=== PATIENT | female | born 1955 | race Caucasian/White ===

== ENCOUNTER 2018-04-11 06:19 | Emergency (ER) | payer BC ==
[~2018-04-11] VITALS: Ht 162.6 cm; Wt 56.7 kg
[2018-04-11] MEDS ORDERED: LANTUS SUBCUT (06:36)
[2018-04-11] MEDS ORDERED: LEVO100T78 PO (06:36)
--- NOTE | 2018-04-11 06:40 | NUR ---
admitted to [facility] via wheelchair from home c/o pain of left ankle. bp 123/89, o2 sat on rm air-99%. dr mason will see & evaluate pt.
--- NOTE | 2018-04-11 07:05 | NUR ---
report given to molly sanchez.
[2018-04-11 07:41] VITALS: BP 111/81
--- NOTE | 2018-04-11 07:41 | NUR ---
Patient discharged to home in stable conditon. Written and verbal after care instructions given. Patient verbalizes understanding of instructions.pt with so
== END 2018-04-11 07:42 | disposition home or self-care (01) ==
LOC: ER 06:24
DX: S92.335A Nondisplaced fracture of third metatarsal bone, left foot, initial encounter for closed fracture (principal); E10.9 Type 1 diabetes mellitus without complications; Z88.5 Allergy status to narcotic agent; Z79.4 Long term (current) use of insulin; X50.1XXA Overexertion from prolonged static or awkward postures, initial encounter; Y93.89 Activity, other specified; Y92.89 Other specified places as the place of occurrence of the external cause; Y99.8 Other external cause status
CPT/HCPCS: 73610; 73630; A4663

== ENCOUNTER 2018-04-18 07:50 | Day surgery (SDC) | payer BC ==
[~2018-04-18 07:50] MED LIST: LANTUS SUBCUT; LEVO100T78 PO
[2018-04-18] MEDS ORDERED: SEVOFLURANE 250 ML BOTTLE IH ONE (07:51)
[2018-04-18] MEDS ORDERED: IV LACTATED RINGERS SOLUTION 1,000 ML BAG IV ONE (07:51)
[2018-04-18] MEDS ORDERED: PROPOFOL 200 MG/20 ML BOTTLE IV ONE (07:51)
[2018-04-18] MEDS ORDERED: ONDANSETRON 4 MG/2 ML VIAL IV ONE (07:51)
[2018-04-18] MEDS ORDERED: LIDOCAINE-MPF 2% 5 ML VIAL MC ONE (07:51)
[2018-04-18] MEDS ORDERED: EPHEDRINE SULFATE 50 MG/ML AMPUL MC ONE (07:51)
[2018-04-18] MEDS ORDERED: PHENYLEPHRINE 10 MG/1 ML VIAL MC ONE (07:51)
[2018-04-18] MEDS ORDERED: CEFAZOLIN 1 G VIAL MC ONE (07:51)
[2018-04-18 08:39] LABS: BASOPHILS % (AUTO) 0.4 % (0.0-2.0); EOSINOPHILS % (AUTO) 0.8 % (0.0-7.0); HEMATOCRIT 41.2 % (31.2-41.9); HEMOGLOBIN 14.2 g/dL (10.9-14.3); LYMPHOCYTES # (AUTO) 1.3 K/uL (20.0-40.0); LYMPHOCYTES % (AUTO) 25.5 % (20.5-51.5); MEAN CORPUSCULAR HEMOGLOBIN 29.8 uug (24.7-32.8); MEAN CORPUSCULAR HGB CONC 34 g/dL (32.3-35.6); MEAN CORPUSCULAR VOLUME 86.5 fL (75.5-95.3); MONOCYTES # (AUTO) 0.3 K/uL (2.0-10.0); MONOCYTES % (AUTO) 6.9 % (0.0-11.0); NEUTROPHILS # (AUTO) 3.3 K/uL (1.8-8.9); NEUTROPHILS % (AUTO) 66.4 % (38.5-71.5); PLATELET COUNT (AUTO) 182 K/uL (179-408); RED BLOOD CELL COUNT(AUTO) 4.76 MIL/uL (3.63-4.92); WHITE BLOOD COUNT (AUTO) 4.9 K/uL (3.8-11.8)
[2018-04-18 08:40] LABS: CREATININE 0.8 mg/dL (0.6-1.3)
[2018-04-18] MEDS ORDERED: POLYMYXIN B SULFATE 500,000 UNITS, BACITRACIN 50,000 UNITS, NORMAL SALINE 20 ML MC ONE ×3 (09:45)
[2018-04-18] MEDS ORDERED: FENTANYL CITRATE 100 MCG/2 ML AMPUL ONE ×2 (10:01→11:30)
[2018-04-18] MEDS ORDERED: ROCURONIUM BROMIDE 50 MG/5 ML VIAL ONE (10:02)
[2018-04-18] MEDS ORDERED: MIDAZOLAM HCL 2 MG/2 ML VIAL ONE ×2 (10:02→11:53)
[2018-04-18] MEDS ORDERED: BUPIVACAINE 0.25% 30 ML VIAL ONE (10:43)
[2018-04-18] MEDS ORDERED: CEFAZOLIN 50 ML IV ONE (11:08)
[2018-04-18] MEDS ORDERED: KETOROLAC TROMETHAMINE 30 MG INJ ONE (11:38)
[2018-04-18] MEDS ORDERED: BUPIVACAINE PF 0.5% 30 ML VIAL ONE (11:50)
[2018-04-18] MEDS ORDERED: HYDROCODONE/APAP 10-325 MG TABLET ONE (13:12)
== END 2018-04-18 14:05 | disposition home or self-care (01) ==
LOC: DS 07:50
PROVIDERS: ATTEND Orthopaedic Surgery Sports Medicine
DX: S92.322A Displaced fracture of second metatarsal bone, left foot, initial encounter for closed fracture (principal); X58.XXXA Exposure to other specified factors, initial encounter; Y93.89 Activity, other specified; Y92.89 Other specified places as the place of occurrence of the external cause; Y99.8 Other external cause status; E10.9 Type 1 diabetes mellitus without complications; Z88.5 Allergy status to narcotic agent; Z79.4 Long term (current) use of insulin; M81.0 Age-related osteoporosis without current pathological fracture; Z98.890 Other specified postprocedural states; Z85.3 Personal history of malignant neoplasm of breast; Z72.89 Other problems related to lifestyle
CPT/HCPCS: 28485; 36415; 64450; 70030; 71045; 73620; 80048; 82962 ×2; 85025; 85730; 93005; J0690 ×2; J1885; J2250 ×2; J2370; J2405; J3010 ×2; J3490 ×7; J7120; A4663; J7030

== ENCOUNTER 2019-05-22 07:39 | Day surgery (SDC) | payer BC ==
[2019-05-22] MEDS ORDERED: LIDOCAINE-MPF 2% 5 ML VIAL MC ONE (07:40)
[2019-05-22] MEDS ORDERED: ONDANSETRON 4 MG/2 ML VIAL IV ONE (07:40)
[2019-05-22] MEDS ORDERED: GLYCOPYRROLATE 0.2 MG/ML VIAL MC ONE (07:40)
[2019-05-22] MEDS ORDERED: DEXAMETHASONE SOD PHOSPHATE 4 MG INJ IV ONE (07:40)
[2019-05-22] MEDS ORDERED: PROPOFOL 200 MG/20 ML BOTTLE IV ONE (07:40)
[2019-05-22] MEDS ORDERED: CEFAZOLIN 1 G VIAL MC ONE (07:40)
[2019-05-22 08:37] LABS: BASOPHILS % (AUTO) 0.5 % (0.0-2.0); EOSINOPHILS # (AUTO) 0.1 K/uL (0.0-0.7); EOSINOPHILS % (AUTO) 1.1 % (0.0-7.0); HEMATOCRIT 39.2 % (31.2-41.9); HEMOGLOBIN 13.4 g/dL (10.9-14.3); LYMPHOCYTES # (AUTO) 1.2 K/uL (20.0-40.0); LYMPHOCYTES % (AUTO) 26.4 % (20.5-51.5); MEAN CORPUSCULAR HEMOGLOBIN 28.9 uug (24.7-32.8); MEAN CORPUSCULAR HGB CONC 34 g/dL (32.3-35.6); MEAN CORPUSCULAR VOLUME 84.7 fL (75.5-95.3); MONOCYTES # (AUTO) 0.3 K/uL (2.0-10.0); MONOCYTES % (AUTO) 7.3 % (0.0-11.0); NEUTROPHILS % (AUTO) 64.7 % (38.5-71.5); PLATELET COUNT (AUTO) 165 K/uL (179-408); RED BLOOD CELL COUNT(AUTO) 4.63 MIL/uL (3.63-4.92); WHITE BLOOD COUNT (AUTO) 4.7 K/uL (3.8-11.8)
[2019-05-22 08:40] LABS: CREATININE 0.7 mg/dL (0.6-1.3); POTASSIUM 4.2 mmol/L (3.5-5.1)
[2019-05-22] MEDS ORDERED: VANCOMYCIN 1000 MG VIAL ONE (08:44)
[2019-05-22] MEDS ORDERED: BUPIVACAINE PF 0.5% 30 ML VIAL ONE (08:44)
[2019-05-22] MEDS ORDERED: POLYMYXIN B SULFATE 500,000 UNITS, BACITRACIN 50,000 UNITS, NORMAL SALINE 20 ML MC ONE ×3 (08:45)
== END 2019-05-22 12:40 | disposition home or self-care (01) ==
LOC: DS 07:39
PROVIDERS: ATTEND Orthopaedic Surgery Sports Medicine
DX: M79.672 Pain in left foot (principal); E11.9 Type 2 diabetes mellitus without complications; E03.9 Hypothyroidism, unspecified; J44.9 Chronic obstructive pulmonary disease, unspecified; I70.0 Atherosclerosis of aorta; F15.90 Other stimulant use, unspecified, uncomplicated; Z85.3 Personal history of malignant neoplasm of breast; Z72.89 Other problems related to lifestyle; Z98.890 Other specified postprocedural states; Z88.5 Allergy status to narcotic agent; Z79.899 Other long term (current) drug therapy
CPT/HCPCS: 36415; 71045; 73630; 85025; 85730; 93005; A4649; A4663; J0690; J1100; J2405; J3370; J3490; J7030

== ENCOUNTER 2019-09-11 10:32 | Inpatient (IN) | payer BC ==
[~2019-09-11] VITALS: Ht 162.6 cm; Wt 56.7 kg
[2019-09-11] MEDS ORDERED: ACETAMINOPHEN ES 500 MG TABLET ONE (10:37)
[2019-09-11] MEDS ORDERED: ACETAMINOPHEN ES 500 MG TABLET PO ONE (10:45)
--- NOTE | 2019-09-11 11:10 | NUR ---
WELLINGTON AQUINO TALKED TO DR. CALDERÓN FOR ORTHO CONSULT. PT WILL BE ADMITTED FOR SURGERY OT HE RIGHT WRIST.
[2019-09-11] MEDS ORDERED: ONDANSETRON 4 MG/2 ML VIAL ONE (11:30)
[2019-09-11] MEDS ORDERED: ONDANSETRON 4 MG/2 ML VIAL IV ONE (11:30)
[2019-09-11] MEDS ORDERED: MORPHINE SULFATE 4 MG/1 ML DISP.SYRIN ONE (11:30)
[2019-09-11] MEDS ORDERED: MORPHINE SULFATE 2 MG/1 ML DISP.SYRIN IV ONE (11:30)
[2019-09-11 11:33] LABS: BASOPHILS % (AUTO) 0.3 % (0.0-2.0); EOSINOPHILS % (AUTO) 0.4 % (0.0-7.0); HEMATOCRIT 42.8 % (31.2-41.9); HEMOGLOBIN 14.6 g/dL (10.9-14.3); LYMPHOCYTES # (AUTO) 1.5 K/uL (20.0-40.0); LYMPHOCYTES % (AUTO) 14.2 % (20.5-51.5); MEAN CORPUSCULAR HGB CONC 34 g/dL (32.3-35.6); MEAN CORPUSCULAR VOLUME 85.2 fL (75.5-95.3); MONOCYTES # (AUTO) 0.4 K/uL (2.0-10.0); MONOCYTES % (AUTO) 3.9 % (0.0-11.0); NEUTROPHILS # (AUTO) 8.6 K/uL (1.8-8.9); NEUTROPHILS % (AUTO) 81.2 % (38.5-71.5); PLATELET COUNT (AUTO) 190 K/uL (179-408); RED BLOOD CELL COUNT(AUTO) 5.02 MIL/uL (3.63-4.92); WHITE BLOOD COUNT (AUTO) 10.5 K/uL (3.8-11.8)
[2019-09-11 11:41] LABS: CREATININE 0.9 mg/dL (0.6-1.3)
[2019-09-11] MEDS ORDERED: ROSU10TA2 PO (11:54)
[2019-09-11] MEDS ORDERED: INSU100V11 (11:54)
--- NOTE | 2019-09-11 12:10 | NUR ---
KENDAL ASHLEY NP AT BEDSIDE.
--- NOTE | 2019-09-11 12:57 | NUR ---
TRANSFERED PT TO FLOOR IN STABLE CONDITION.
[2019-09-11] MEDS ORDERED: MAGNESIUM HYDROXIDE 30 ML LIQUID UDC PO PRN (13:00)
[2019-09-11] MEDS ORDERED: DEXTROSE 50% 50 ML DISP.SYRIN IV PRN (13:00)
[2019-09-11] MEDS ORDERED: ZOLPIDEM 5 MG TABLET PO PRN (13:00)
[2019-09-11 13:32] VITALS: BP 101/45
[2019-09-11] MEDS: IV D5 1/2 NS 1000 ML 1,000 ML IV PRN (13:34)
--- NOTE | 2019-09-11 13:37 | NUR ---
64 year old female received from er via wheel chair for right shoulder nd r wrist fx ,pt is axox4 call light with in reach.md called for admission orders,received and notified
[2019-09-11] MEDS: ONDANSETRON 4 MG/2 ML VIAL IV PRN ×2 (15:50→22:00)
[2019-09-11] MEDS: MORPHINE SULFATE 2 MG/1 ML DISP.SYRIN IV PRN ×2 (15:51→22:00)
[2019-09-11 16:30] VITALS: BP 95/49
[2019-09-11] MEDS: BLOOD SUGAR DIAGNOSTIC 1 EACH STRIP VI SCH ×2 (17:12→23:05)
--- NOTE | 2019-09-11 19:30 | NUR ---
Received patient awake and alert. Patient shows no signs or symptoms of distress at this time. Complains 6/10 right arm pain. Due for morphine along with zofran at 2200. Call light within reach. Bed set to lowest position. Will continue to monitor patient
[2019-09-11] MEDS ORDERED: LANTUS SUBCUT SCH (21:00)
[2019-09-11] MEDS: ATORVASTATIN 20 MG TABLET PO SCH (21:00)
[2019-09-11] MEDS ORDERED: Medication Not On Formulary EA (Rosuvastatin Calcium (Crestor) 10 MG) PO SCH (21:00)
[2019-09-11] MEDS: INSULIN GLARGINE,HUM 300 UNITS/3 ML CARTRIDGE SQ SCH (21:00)
--- NOTE | 2019-09-11 21:59 | NUR ---
Patient seen by Dr. Jean. Patient is medically cleared for surgery tomorrow with Dr. Damon. Will continue to monitor patient.
[2019-09-11] MEDS: INSULIN REGULAR, HUMAN 300 UNIT/3 ML VIAL SQ PRN (23:03)
[2019-09-12] MEDS: IV D5 1/2 NS 1000 ML 1,000 ML IV PRN (03:00)
[2019-09-12] MEDS: ONDANSETRON 4 MG/2 ML VIAL IV PRN (04:02)
[2019-09-12 04:12] VITALS: BP 111/53
[2019-09-12] MEDS: MORPHINE SULFATE 2 MG/1 ML DISP.SYRIN IV PRN (04:23)
[2019-09-12 05:45] LABS: BILIRUBIN,DIRECT 0.1 mg/dL (0.0-0.2); BILIRUBIN,TOTAL 0.6 mg/dL (0.2-1.0); CREATININE 0.9 mg/dL (0.6-1.3); MAGNESIUM 1.8 mg/dL (1.8-2.4); PHOSPHOROUS 3.2 mg/dL (2.5-4.9); POTASSIUM 4.4 mmol/L (3.5-5.1); TOTAL PROTEIN, SERUM 6.9 g/dL (6.4-8.2)
[2019-09-12 05:51] LABS: THYROID STIMULATING HORMONE 0.094 mIU/mL (0.358-3.740)
[2019-09-12 06:03] LABS: BASOPHILS % (AUTO) 0.1 % (0.0-2.0); HEMATOCRIT 38.4 % (31.2-41.9); HEMOGLOBIN 12.8 g/dL (10.9-14.3); LYMPHOCYTES # (AUTO) 0.8 K/uL (20.0-40.0); LYMPHOCYTES % (AUTO) 7.3 % (20.5-51.5); MEAN CORPUSCULAR HEMOGLOBIN 28.5 uug (24.7-32.8); MEAN CORPUSCULAR HGB CONC 33 g/dL (32.3-35.6); MEAN CORPUSCULAR VOLUME 85.6 fL (75.5-95.3); MONOCYTES # (AUTO) 0.9 K/uL (2.0-10.0); MONOCYTES % (AUTO) 8.1 % (0.0-11.0); NEUTROPHILS # (AUTO) 9.3 K/uL (1.8-8.9); NEUTROPHILS % (AUTO) 84.5 % (38.5-71.5); PLATELET COUNT (AUTO) 158 K/uL (179-408); RED BLOOD CELL COUNT(AUTO) 4.49 MIL/uL (3.63-4.92)
[2019-09-12] MEDS: LEVOTHYROXINE SODIUM 100 MCG TABLET PO SCH (06:15)
[2019-09-12] MEDS: BLOOD SUGAR DIAGNOSTIC 1 EACH STRIP VI SCH ×3 (06:20→17:14)
[2019-09-12] MEDS: INSULIN REGULAR, HUMAN 300 UNIT/3 ML VIAL SQ PRN ×3 (06:23→17:18)
--- NOTE | 2019-09-12 07:23 | NUR ---
Patient shows no signs or symptoms of distress at this time. Patient endorsed to AM nurse in stable condition.
[2019-09-12] MEDS ORDERED: HYDROMORPHONE 1 MG/1 ML DISP.SYRIN IV PRN (08:00)
[2019-09-12 11:33] VITALS: BP 122/50
[2019-09-12] MEDS ORDERED: POLYMYXIN B SULFATE 500,000 UNITS, BACITRACIN 50,000 UNITS, NORMAL SALINE 20 ML MC ONE ×3 (13:00)
--- NOTE | 2019-09-12 13:24 | NUR ---
PATIENT WENT TO OR FOR ORIF RIGHT WRIST VIA BED
[2019-09-12] MEDS ORDERED: FENTANYL CITRATE 250 MCG/5 ML AMPUL ONE (13:33)
[2019-09-12] MEDS ORDERED: MIDAZOLAM HCL 2 MG/2 ML VIAL ONE (13:33)
[2019-09-12] MEDS ORDERED: ROCURONIUM BROMIDE 50 MG/5 ML VIAL ONE (13:49)
[2019-09-12] MEDS ORDERED: VANCOMYCIN 1000 MG VIAL ONE (14:51)
[2019-09-12] MEDS ORDERED: IV D5W-0.45% NS +20 KCL 1,000 ML IV ONE (15:25)
[2019-09-12] MEDS ORDERED: KETOROLAC TROMETHAMINE 30 MG INJ ONE (15:41)
--- NOTE | 2019-09-12 16:17 | NUR ---
TRIPLE ANTIBIOTIC GIVEN IN OR. PATIENT STILL IN RECOVERY ROOM
[2019-09-12 16:30] VITALS: BP 116/59
--- NOTE | 2019-09-12 16:51 | NUR ---
BACK FROM OR AWAKE ALERT AND ORIENTED X3 WITH O2 2L NC. POST-OP ORIF OBSERVED.
[2019-09-12] MEDS: POTASSIUM CHLORIDE 20 MEQ in IV D5 1/2 NS 1000 ML 1,000 ML IV PRN (17:13)
[2019-09-12] MEDS: TRAMADOL HCL 50 MG TABLET PO SCH ×2 (18:34→23:58)
[2019-09-12 20:06] VITALS: BP 138/64
[2019-09-12] MEDS: ATORVASTATIN 20 MG TABLET PO SCH ×2 (20:27→20:47)
[2019-09-12] MEDS: INSULIN GLARGINE,HUM 300 UNITS/3 ML CARTRIDGE SQ SCH (20:46)
[2019-09-12] MEDS: KETOROLAC TROMETHAMINE 15 MG INJ IVP SCH (23:58)
[2019-09-13] MEDS: BLOOD SUGAR DIAGNOSTIC 1 EACH STRIP VI SCH ×3 (00:01→11:14)
[2019-09-13] MEDS: INSULIN REGULAR, HUMAN 300 UNIT/3 ML VIAL SQ PRN ×3 (00:06→11:21)
[2019-09-13] MEDS: ACETAMINOPHEN 325 MG TABLET PO PRN ×2 (02:08→08:38)
[2019-09-13 04:20] VITALS: BP 130/72
[2019-09-13] MEDS: KETOROLAC TROMETHAMINE 15 MG INJ IVP SCH ×2 (05:44→12:00)
[2019-09-13] MEDS: TRAMADOL HCL 50 MG TABLET PO SCH ×2 (05:44→11:13)
[2019-09-13] MEDS: POTASSIUM CHLORIDE 20 MEQ in IV D5 1/2 NS 1000 ML 1,000 ML IV PRN (05:44)
[2019-09-13] MEDS: LEVOTHYROXINE SODIUM 100 MCG TABLET PO SCH (06:22)
[2019-09-13 06:24] LABS: CREATININE 0.7 mg/dL (0.6-1.3); POTASSIUM 4.3 mmol/L (3.5-5.1)
--- NOTE | 2019-09-13 06:50 | NUR ---
Patient slept well. On routine pain management but patient refusing her Toradol IV order and only wants Tramadol and Tylenol. Sling on R arm kept in place. IV on LAC 20g intact and patent w/ IVF infusing. Patient educated w/ the use of incentive spirometer. All needs attended. Will endorse accordingly
[2019-09-13 06:51] LABS: BASOPHILS % (AUTO) 0.1 % (0.0-2.0); EOSINOPHILS % (AUTO) 0.1 % (0.0-7.0)
[2019-09-13 07:07] LABS: LYMPHOCYTES # (AUTO) 1.5 K/uL (20.0-40.0); LYMPHOCYTES % (AUTO) 12.4 % (20.5-51.5); MEAN CORPUSCULAR HGB CONC 34 g/dL (32.3-35.6); MEAN CORPUSCULAR VOLUME 85.3 fL (75.5-95.3); MONOCYTES % (AUTO) 8.4 % (0.0-11.0); NEUTROPHILS # (AUTO) 9.3 K/uL (1.8-8.9); PLATELET COUNT (AUTO) 141 K/uL (179-408); RED BLOOD CELL COUNT(AUTO) 3.73 MIL/uL (3.63-4.92); WHITE BLOOD COUNT (AUTO) 11.7 K/uL (3.8-11.8)
[2019-09-13 07:10] LABS: HEMATOCRIT 31.8 % (31.2-41.9); HEMOGLOBIN 10.8 g/dL (10.9-14.3)
[2019-09-13] MEDS ORDERED: DEXTROSE 50% 50 ML DISP.SYRIN IV PRN (07:30)
--- NOTE | 2019-09-13 07:30 | NUR ---
Received patient in bed alert and awake. On room air with no SOB. Right arm in sling and covered with maia wrap. IV site on left arm in place infusing D5 1/2 NS with 20 mEq K @ 75, tolerating well. Complained of 4/10 pain but did not want any medications. Assisted to bathroom to urinate, able to walk. Bed locked in lowest position with 2x siderails up. Will continue to monitor.
[2019-09-13 08:00] VITALS: BP 126/76
--- NOTE | 2019-09-13 08:41 | NUR ---
Patient complained of right arm 8/10 pain s/p right wrist surgery. Requested for Tylenol PRN as ordered, med given. Patient made comfortable but only ate a little of breakfast.
[2019-09-13] MEDS ORDERED: ACET650T10 PO (10:43)
[2019-09-13] MEDS ORDERED: TRAM50TA2 PO (10:43)
[2019-09-13] MEDS ORDERED: VECURONIUM BROMIDE 10 MG VIAL IV ONE (12:39)
[2019-09-13] MEDS ORDERED: EPHEDRINE SULFATE 50 MG/ML AMPUL IM ONE (12:39)
[2019-09-13] MEDS ORDERED: IV NORMAL SALINE 1000 ML BAG IV ONE ×2 (12:39)
[2019-09-13] MEDS ORDERED: ONDANSETRON 4 MG/2 ML VIAL IV ONE (12:39)
[2019-09-13] MEDS ORDERED: PROPOFOL 200 MG/20 ML BOTTLE IV ONE (12:39)
[2019-09-13] MEDS ORDERED: LIDOCAINE-MPF 2% 5 ML VIAL IJ ONE (12:39)
[2019-09-13] MEDS ORDERED: CEFAZOLIN 1 G VIAL IM ONE (12:39)
[2019-09-13] MEDS ORDERED: SEVOFLURANE 250 ML BOTTLE IH ONE (12:39)
[2019-09-13] MEDS ORDERED: METOCLOPRAMIDE HCL 10 MG/2 ML VIAL IV ONE (12:39)
--- NOTE | 2019-09-13 12:40 | NUR ---
Patient discharged alert and oriented on wheelchair accompanied by RN. No shortness of breath. Right arm wrapped with maia wrap in a sling with complaints of pain upon movement but pain slightly relieved by Tramadol. IV on left AC and ID bands removed. DC instructions given and signed by patient, verbalized understanding. Patient's belonging list signed and all are accounted for. Assisted patient in changing to her clothes. No distress noted. Patient picked up by friend Karen.
== END 2019-09-13 12:40 | disposition home or self-care (01) | DRG 511 ==
LOC: ER 10:32 → MEDSURG3 12:53
PROVIDERS: ADMIT Nurse Practitioner Acute Care; ATTEND Nurse Practitioner Acute Care
PROC: 0PSH04Z Reposition Right Radius with Internal Fixation Device, Open Approach (ICD-10-PCS; principal; 2019-09-12)
DX: S52.501A Unspecified fracture of the lower end of right radius, initial encounter for closed fracture (principal); S42.201A Unspecified fracture of upper end of right humerus, initial encounter for closed fracture; S52.601A Unspecified fracture of lower end of right ulna, initial encounter for closed fracture; W01.0XXA Fall on same level from slipping, tripping and stumbling without subsequent striking against object, initial encounter; Z90.13 Acquired absence of bilateral breasts and nipples; E03.9 Hypothyroidism, unspecified; E78.5 Hyperlipidemia, unspecified; E10.65 Type 1 diabetes mellitus with hyperglycemia; Z85.3 Personal history of malignant neoplasm of breast; Z79.890 Hormone replacement therapy; Y93.89 Activity, other specified; Y92.002 Bathroom of unspecified non-institutional (private) residence as the place of occurrence of the external cause; Z79.4 Long term (current) use of insulin
CPT/HCPCS: 36415; 71045; 73030; 73110; 83735; 84100; 84443; 84481; 85025; 85730; 86850; 86900; 86901; 93005; 93307; A4649; A4663; A9150; C1713; C1776; G0378; J0690; J1170; J1815; J1885; J2250; J2270; J2405; J2765; J3010; J3370; J3480; J3490; J7030